=== PATIENT | female | born 1980 | race African-American/Black ===

== ENCOUNTER 2018-11-28 23:25 | Emergency (ER) | payer OTHER ==
[2018-11-28 23:35] VITALS: BP 152/95
--- NOTE | 2018-11-28 23:42 | ER Document Report ---
ED Medical Screen (RME) - General Chief Complaint: Burn Stated Complaint: BURN Time Seen by Provider: 11/28/18 23:38 Notes: Patient is a 38-year-old female who presents to the emergency department with a chief complaint of iqbal to bilateral feet. She states that yesterday afternoon around 1:30 PM she was working at [email or web address] when hot oil spilled onto both feet. Patient states she was wearing close toed shoes at the time. Patient states EMS was initially on scene and told her that it would remain red but would not blister. Patient at that time refused EMS transport. Patient states the blistering developed about 3 hours later. Patient states that she has continued to have significant swelling to bilateral feet as well as increase in pain. Patient denies fever, chills. States she did take ibuprofen 1 hour ago. Patient states her tetanus shot is not up-to-date. TRAVEL OUTSIDE OF THE [place] IN LAST 30 DAYS: No Physical Exam - Vital signs Vitals: Temp Pulse Resp BP Pulse Ox 98.2 F 107 H 22 H 152/95 H 98 11/28/18 23:34 11/28/18 23:34 11/28/18 23:34 11/28/18 23:34 11/28/18 23:34 - Respiratory Respiratory status: No respiratory distress Chest status: Nontender Breath sounds: Normal Chest palpation: Normal - Extremities General lower extremity: Other - Edema and numerous blisters noted to the dorsal aspect of bilateral feet. Course - Re-evaluation Re-evalutation: 11/28/18 23:41 Patient states that her tetanus shot is not up-to-date, that she does not receive vaccinations and does not want a tetanus shot at this time. Patient was transferred to a bed for evaluation promptly. I have greeted and performed a rapid initial assessment of this patient. A comprehensive ED assessment and evaluation of the patient, analysis of test results and completion of the medical decision making process will be conducted by additional ED providers. - Vital Signs Vital signs: Temp Pulse Resp BP Pulse Ox 98.2 F 107 H 22 H 152/95 H 98 11/28/18 23:34 11/28/18 23:34 11/28/18 23:34 11/28/18 23:34 11/28/18 23:34
[2018-11-28] MEDS ORDERED: HYDROMORPHONE HCL INJ/PF 2 MG/ML AMPULE ONE (23:58)
--- NOTE | 2018-11-29 00:20 | ER Document Report ---
ED General - General Chief Complaint: Burn Stated Complaint: BURN Time Seen by Provider: 11/28/18 23:38 Notes: Patient is a 38-year-old female who presents to the emergency department with a chief complaint of iqbal to bilateral feet. She states that yesterday afternoon around 1:30 PM she was working at [employer] when hot oil spilled onto both feet. Patient states she was wearing close toed shoes at the time. Patient states EMS was initially on scene and told her that it would remain red but would not blister. Patient at that time refused EMS transport. Patient states the blistering developed about 3 hours later. Patient states that she has continued to have significant swelling to bilateral feet as well as increase in pain. Pain is described as a constant, burning, moderate to severe pain. Somewhat improved by ibuprofen. Worsened by touching the area. Patient denies fever, chills. Tetanus is up-to-date. No history of similar injuries in the past. TRAVEL OUTSIDE OF THE [place] IN LAST 30 DAYS: No - Related Data Allergies/Adverse Reactions: No Known Allergies Allergy (Verified 11/29/18 00:02) Past Medical History - General Information source: Patient - Social History Smoking Status: Never Smoker Frequency of alcohol use: None Drug Abuse: None Lives with: Spouse/Significant other Family History: Reviewed & Not Pertinent Review of Systems - Review of Systems Notes: Constitutional: Negative for fever. HENT: Negative for sore throat. Eyes: Negative for visual changes. Cardiovascular: Negative for chest pain. Respiratory: Negative for shortness of breath. Gastrointestinal: Negative for abdominal pain, vomiting or diarrhea. Genitourinary: Negative for dysuria. Musculoskeletal: Negative for back pain. Skin: Positive for iqbal and blistering to the bilateral dorsal feet Neurological: Negative for headaches, weakness or numbness. 10 point ROS negative except as marked above and in HPI. Physical Exam - Vital signs Vitals: Temp Pulse Resp BP Pulse Ox 98.2 F 107 H 22 H 152/95 H 98 11/28/18 23:34 11/28/18 23:34 11/28/18 23:34 11/28/18 23:34 11/28/18 23:34 Interpretation: Hypertensive, Tachycardic Notes: PHYSICAL EXAMINATION: GENERAL: Well-appearing, well-nourished and in no acute distress. HEAD: Atraumatic, normocephalic. EYES: sclera anicteric, conjunctiva are normal. ENT: Moist mucous membranes. NECK: Normal range of motion LUNGS: Normal work of breathing HEART: 2+ radial pulses bilaterally EXTREMITIES: no pitting or edema. No cyanosis. Full flexion-extension of all digits of the bilateral toes NEUROLOGICAL: No focal neurological deficits. Moves all extremities spontaneously and on command. PSYCH: Normal mood, normal affect. SKIN: Warm, Dry, normal turgor, patient has multiple serous blisters over the bilateral dorsal feet particular towards the distal dorsal aspect and as well as over multiple toes of the bilateral feet. No spreading erythema or significant induration to the areas. Full flexion Course - Re-evaluation Re-evalutation: 11/29/18 00:18 Patient presents with what appeared to be partial thickness second degree iqbal to the dorsums of the bilateral feet and toes. These iqbal are greater than 36 hours old. No evidence of associated infection. Patient is otherwise well in appearance. No additional injuries or concerns. Wounds have been debrided, have been dressed with Silvadene. Analgesia has been provided. Have advised outpatient follow-up in the wound care center. At this time will discharge with return precautions and follow-up recommendations. Verbal discharge instructions given a the bedside and opportunity for questions given. Medication warnings reviewed. Patient is in agreement with this plan and has verbalized understanding of return precautions and the need for primary care follow-up in the next 24-72 hours. - Vital Signs Vital signs: Temp Pulse Resp BP Pulse Ox 98.2 F 107 H 22 H 152/95 H 98 11/28/18 23:34 11/28/18 23:34 11/28/18 23:34 11/28/18 23:34 11/28/18 23:34 Discharge - Discharge Clinical Impression: Partial thickness burn of left foot Qualifiers: Encounter type: initial encounter Qualified Code(s): T25.222A - Burn of second degree of left foot, initial encounter Partial thickness burn of right foot Qualifiers: Encounter type: initial encounter Qualified Code(s): T25.221A - Burn of second degree of right foot, initial encounter Condition: Good Disposition: HOME, SELF-CARE Additional Instructions: you were seen for iqbal today. Please clean and dress the areas twice daily and then apply the Silvadene cream that you were sent home with. Keep the area clean and dressed. For your pain: Take ibuprofen 600 mg and acetaminophen 1000 mg every 6 hours together as needed for pain. If this does not control your pain you may take 15 mg of oral morphine every 4 hours as needed. Please be very careful about using the oral morphine and only use this for severe pain. If you are taking morphine, be sure to take a stool softener and laxative such as sennosides with docusate to prevent severe constipation. Please return if you develop pus from the wounds, spreading redness from the areas, worsening pain, or any other symptoms that are worrisome to you. Please follow-up with your primary care doctor in the next 1-2 days. You should also follow in the wound care center and referral has been provided. Prescriptions: Morphine Sulfate [Morphine Ir 15 mg Tablet] 15 mg PO Q6HP PRN #6 tablet PRN Reason: Referrals: LOPEZ CABRERA MD [ACTIVE STAFF] - Follow up as needed
[2018-11-29] MEDS ORDERED: ONDANSETRON 4 MG TAB.RAPDIS ONE (01:32)
[2018-11-29] MEDS ORDERED: SILVER SULFADIAZINE 1% CREAM 400 GM TP PRN (01:55)
== END 2018-11-29 01:56 | disposition home or self-care (01) ==
LOC: ER 23:25
DX: T25.221A Burn of second degree of right foot, initial encounter (principal); T25.222A Burn of second degree of left foot, initial encounter; R22.43 Localized swelling, mass and lump, lower limb, bilateral; X10.2XXA Contact with fats and cooking oils, initial encounter; Y92.511 Restaurant or cafe as the place of occurrence of the external cause; Y99.0 Civilian activity done for income or pay
CPT/HCPCS: 99283; 96374; J1170